=== PATIENT | female | born 1975 | race Two or more races ===

== ENCOUNTER 2023-12-11 13:09 | Emergency (ER) | payer SELFPAY ==
[2023-12-11 13:27] VITALS: BMI 28.9
[2023-12-11 14:46] LABS: URINE APPEARANCE Clear; URINE BILIRUBIN Negative (NEGATIVE); URINE COLOR Amber; URINE GLUCOSE (UA) Trace (NEGATIVE); URINE KETONE Negative (NEGATIVE); URINE LEUK ESTERASE Negative (NEGATIVE); URINE NITRITE Positive (NEGATIVE); URINE PROTEIN Negative (NEGATIVE); URINE UROBILINOGEN 0.2 mg/dL (0.2-1.0)
[2023-12-11] MEDS ORDERED: PHENAZOPYRIDINE HCL 100 MG TABLET (FP) ONE (15:03)
[2023-12-11] MEDS ORDERED: CEPHALEXIN MONOHYDRATE 500 MG CAPSULE (UD) ONE (15:03)
[2023-12-11 15:08] LABS: EPI CELLS 1 /uL (0-25.1); HYALINE CASTS 0 /uL (0-3.1); URINE BACTERIA 1 /uL (0-1359); URINE RBC 15 /uL (0-23.9); URINE WBC 0 /uL (0-25.8)
[2023-12-11] MEDS: CEPHALEXIN MONOHYDRATE 500 MG CAPSULE (UD) PO ONE (15:10)
[2023-12-11] MEDS: PHENAZOPYRIDINE HCL 100 MG TABLET (FP) PO ONE (15:10)
[2023-12-11 15:17] VITALS: BP 134/70; PULSE 75; RESP 16; TEMP 98.5
== END 2023-12-11 18:57 | disposition home or self-care (01) ==
LOC: JER 13:09
PROC: 0T9B70Z Drainage of Bladder with Drainage Device, Via Natural or Artificial Opening (ICD-10-PCS; principal; 2023-12-11)
DX: R33.9 Retention of urine, unspecified (principal); R39.15 Urgency of urination; R10.30 Lower abdominal pain, unspecified
CPT/HCPCS: 76857; 81003; 84703; 87086; 99284-25

== ENCOUNTER 2024-06-03 04:09 | Day surgery (SDC) | payer OTHER ==
[2024-06-01 12:55] VITALS: BMI 28.9
[2024-06-03] MEDS ORDERED: BUPIVACAINE HCL/PF 0.5% (5MG/ML) 10 ML VIAL ONE (07:25)
[2024-06-03] MEDS ORDERED: ONDANSETRON 4 MG/2 ML VIAL ONE (08:07)
[2024-06-03] MEDS ORDERED: DEXAMETHASONE SOD PHOSPHATE 4 MG/1 ML VIAL ONE (08:07)
[2024-06-03] MEDS ORDERED: MIDAZOLAM HCL 2 MG/2 ML SINGLE DOSE VIAL ONE ×2 (08:07→08:32)
[2024-06-03] MEDS ORDERED: PROPOFOL 20 ML ONE ×2 (08:07→08:32)
[2024-06-03] MEDS ORDERED: ROCURONIUM BROMIDE 50 MG/5 ML SYRINGE ONE ×2 (08:29→09:02)
[2024-06-03] MEDS: ceFAZolin SODIUM 1 GM VIAL IVPB ONE ×2 (08:50)
[2024-06-03] MEDS: BUPIVACAINE HCL/PF 0.5% (5 MG/ML) 30 ML VIAL IJ ONE ×2 (08:59)
[2024-06-03] MEDS: LACTATED RINGERS SOLUTION 1,000 ML IV SCH (11:59)
[2024-06-03] MEDS ORDERED: ONDANSETRON 4 MG/2 ML VIAL IVPUSH PRN (12:21)
[2024-06-03] MEDS ORDERED: oxyCODONE HCL 5 MG TABLET PO PRN (12:21)
[2024-06-03] MEDS ORDERED: ACETAMINOPHEN INJECTION 100 ML ONE (12:28)
[2024-06-03] MEDS: ACETAMINOPHEN 1000 MG/100 ML BAG IVPB ONE (12:30)
[2024-06-03 15:19] VITALS: BP 135/67; PULSE 82; RESP 16; TEMP 98.4
== END 2024-06-03 15:40 | disposition home or self-care (01) ==
LOC: JASU-SURG 04:09
PROVIDERS: ATTEND Obstetrics & Gynecology
PROC: 0UT9FZZ Resection of Uterus, Via Natural or Artificial Opening With Percutaneous Endoscopic Assistance (ICD-10-PCS; principal; 2024-06-03 08:00)
PROC: 0UT7FZZ Resection of Bilateral Fallopian Tubes, Via Natural or Artificial Opening With Percutaneous Endoscopic Assistance (ICD-10-PCS; 2024-06-03 08:00)
DX: N81.2 Incomplete uterovaginal prolapse (principal); D25.9 Leiomyoma of uterus, unspecified; N72 Inflammatory disease of cervix uteri
CPT/HCPCS: 86922; 88307-TC; 94760; J0131